=== PATIENT | female | born 1965 | race Asian ===

== ENCOUNTER → 2018-10-01 15:57 | Outpatient (CLI) | payer OTHER, SELFPAY ==
--- NOTE | 2018-10-01 | DI.MRI.S_ITS ---
PROCEDURE: MR SHOULDER RT WO CON INDICATIONS: IMPINGEMENT OF RIGHT SHOULDER TECHNIQUE: Noncontrast oblique coronal T2 fast spin echo with fat saturation, oblique sagittal T1 spin echo and T2 fast spin echo with fat saturation, axial T1 spin echo and T2 fast spin echo with fat saturation through the shoulder. COMPARISON: None. FINDINGS: Image quality: Excellent. Rotator cuff: There is full-thickness rupture of the distal supraspinatus at its insertion on the humeral head with to 1.5 cm medial retraction of torn tendon fibers to the level of acromion. Tendinosis and moderately articular surface and bursal surface partial-thickness tear involving distal infraspinatus is seen at its insertion the humeral head extending to musculotendinous junction. Tendinosis and low-grade intrasubstance partial thickness involving distal subscapularis is also noted. Sagittal images demonstrate mild to moderate supraspinatus muscle atrophy. Bones and bursae: No bone marrow contusions or fractures. Mild to moderate acromioclavicular joint osteoarthritis is seen with joint space narrowing and downward osteophyte formation compressing the musculotendinous junction of supraspinatus. Moderate amount of joint effusion and subacromial subdeltoid bursal fluid is seen. No gross intra-articular loose body. Capsule and soft tissues: In the absence of intra-articular contrast, the labrum and glenohumeral ligaments appear intact. The long head of the biceps tendon demonstrates normal location and morphology. The rotator interval appears normal, without fibrosis. The coracohumeral ligament is normal in thickness. IMPRESSION: 1. Full-thickness rupture of the supraspinatus at its insertion the humeral head with 1.5 cm medial retraction of torn tendon fibers to the level of acromion. Few intact anterior fibers of the distal supraspinatus is seen. Tendinosis and moderately articular and bursal surface partial-thickness tear involving distal infraspinatus at its insertion on the humeral head extending to musculotendinous junction. Tendinosis and low to moderately intrasubstance partial-thickness tear involving distal subscapularis. Mild to moderate supraspinatus muscle atrophy. 2. Moderate acromioclavicular joint osteoarthritis. No fracture or dislocation. 3. No gross focal labral tear. Dictated by: Emeka Bernal M.D. on 10/02/2018 at 9:19 Approved by: Emeka Bernal M.D. on 10/02/2018 at 9:26
== END ==
PROVIDERS: Visit Provider Orthopaedic Surgery
DX: M75.41 Impingement syndrome of right shoulder (principal); M75.121 Complete rotator cuff tear or rupture of right shoulder, not specified as traumatic; M19.011 Primary osteoarthritis, right shoulder; M62.511 Muscle wasting and atrophy, not elsewhere classified, right shoulder
CPT/HCPCS: 73221